=== PATIENT | female | born 1970 | race Caucasian/White ===

== ENCOUNTER 2016-05-01 13:05 | Emergency (ER) | payer OTHER, MEDICAID ==
[2016-05-01 13:11] VITALS: RESP 16; TEMP 97.7
--- NOTE | 2016-05-01 16:02 | EDPHY ---
HPI/HX/ROS/PE/MDM Narrative: CHIEF COMPLAINT: Chest pain HPI: The patient is an anticoagulated 46 y/o female, with a history of PEs and DVTs, complaining of left-sided chest pain since waking this morning. She reports mild shortness of breath for the few days that she first noticed after listening to a recording of herself. This morning she woke with left upper chest pain that has been constant in nature and slightly worse with inspiration. She denies recent illness, trauma, fever, leg pain or swelling, or cough. She says she is complaint with her Eliquis. REVIEW OF SYSTEMS: Aside from elements discussed in the HPI, a comprehensive 10-point review of systems was reviewed and is negative. PMH: Bipolar disorder, PEs and DVTs on Eliquis SOCIAL HISTORY: Friend at beside. Records astrology podcast PHYSICAL EXAM: General:Patient is alert, in no acute distress. ENT:Eyes are normal to inspection. ENT inspection normal. Neck: Normal inspection. Full range of motion. Respiratory:No respiratory distress. Breath sounds normal bilaterally. Cardiovascular: Regular rate and rhythm. Strong peripheral pulses. Normal cap refill. Abdomen:The abdomen is nontender to palpation. There are no peritoneal signs. There are normal bowel sounds. Back: Normal to inspection. No tenderness to palpation. Skin: Normal color. No rash. Warm and dry. Extremities: Normal appearance. Full range of motion. Neuro: Oriented x3. Normal motor function. Normal sensory function. ED Course: IV established. Labs drawn including CBC, CHEM, troponin, PTPTT. Plan for EKG, CTA angio. The 12 lead EKG was interpreted by myself. See hard copy and/or "tracemaster" electronic copy for interpretation. Study: CTA of the chest Indication: Chest pain, hx PE and DVT Results: CTA scan of the chest was obtained. The results of the study are 1. No evidence of pulmonary embolic disease. 2. See above report for additional findings. The study was read by the radiologist, Dr. Lentz. I viewed the images myself on the PACS system. 1813: Reassessed patient and discussed imaging results. Labs are unremarkable. She will be discharged home with referral to PCP and return precautions. She agrees with plan. MDM: This patient presents with left-sided pleuritic chest pain. Given her history of multiple PEs, we performed a CT angio of the chest to rule out this possibility. Thankfully this is negative. The patient is on anticoagulation. There is no evidence of acute coronary syndrome given negative EKG and troponin after prolonged constant symptoms. The etiology of her symptoms is unclear. I see no evidence of pneumonia, pneumothorax, PE, CHF or bronchitis. The patient is comfortable and her vital signs are normal. She is appropriate for outpatient workup. - Data Points Laboratory Results: Laboratory Results 05/01/16 16:15 05/01/16 16:15 05/01/16 05/01/16 05/01/16 16:18 16:15 16:15 WBC RBC Hgb POC Hgb 14.6 gm/dL gm/dL (12.3-15.9) Hct POC Hct 43 % % (35.5-47.5) MCV MCH MCHC RDW Plt Count MPV Neut % (Auto) Lymph % (Auto) Hand % (Auto) Eos % (Auto) Baso % (Auto) Nucleat RBC Rel Count Absolute Neuts (auto) Absolute Lymphs (auto) Absolute Monos (auto) Absolute Eos (auto) Absolute Basos (auto) Absolute Nucleated RBC Immature Gran % Immature Gran # PT 13.3 SEC SEC (12.0-15.0) INR 1.02 (0.83-1.16) APTT 25.1 SEC SEC (23.0-38.0) POC Sodium 141 mEq/L mEq/L (134-144) Sodium 138 mEq/L mEq/L (134-144) POC Potassium 3.5 mEq/L mEq/L (3.3-5.0) Potassium 3.8 mEq/L mEq/L (3.5-5.2) POC Chloride 100 mEq/L mEq/L (96-108) Chloride 102 mEq/L mEq/L (97-110) Carbon Dioxide 25 mEq/l mEq/l (22-31) Anion Gap 11 mEq/L mEq/L (8-16) POC BUN 9 mg/dL mg/dL (7-23) BUN 10 mg/dL mg/dL (7-23) Creatinine 0.6 mg/dL mg/dL (0.6-1.0) POC Creatinine 0.6 mg/dL mg/dL (0.6-1.2) Estimated GFR > 60 Glucose 96 mg/dL mg/dL (70-100) POC Glucose 101 mg/dL H mg/dL (70-100) Calcium 9.2 mg/dL mg/dL (8.5-10.4) Troponin I < 0.012 ng/mL ng/mL (0-0.034) 05/01/16 16:15 WBC 5.27 10^3/uL 10^3/uL (3.80-9.50) RBC 4.55 10^6/uL 10^6/uL (4.18-5.33) Hgb 14.2 g/dL g/dL (12.6-16.3) POC Hgb Hct 41.4 % % (38.0-47.0) POC Hct MCV 91.0 fL fL (81.5-99.8) MCH 31.2 pg pg (27.9-34.1) MCHC 34.3 g/dL g/dL (32.4-36.7) RDW 12.1 % % (11.5-15.2) Plt Count 189 10^3/uL 10^3/uL (150-400) MPV 9.3 fL fL (8.7-11.7) Neut % (Auto) 58.5 % % (39.3-74.2) Lymph % (Auto) 30.6 % % (15.0-45.0) Hand % (Auto) 9.9 % % (4.5-13.0) Eos % (Auto) 0.0 % L % (0.6-7.6) Baso % (Auto) 0.8 % % (0.3-1.7) Nucleat RBC Rel Count 0.0 % % (0.0-0.2) Absolute Neuts (auto) 3.09 10^3/uL 10^3/uL (1.70-6.50) Absolute Lymphs (auto) 1.61 10^3/uL 10^3/uL (1.00-3.00) Absolute Monos (auto) 0.52 10^3/uL 10^3/uL (0.30-0.80) Absolute Eos (auto) 0.00 10^3/uL L 10^3/uL (0.03-0.40) Absolute Basos (auto) 0.04 10^3/uL 10^3/uL (0.02-0.10) Absolute Nucleated RBC 0.00 10^3/uL 10^3/uL (0-0.01) Immature Gran % 0.2 % % (0.0-1.1) Immature Gran # 0.01 10^3/uL 10^3/uL (0.00-0.10) PT INR APTT POC Sodium Sodium POC Potassium Potassium POC Chloride Chloride Carbon Dioxide Anion Gap POC BUN BUN Creatinine POC Creatinine Estimated GFR Glucose POC Glucose Calcium Troponin I Point of Care Test Results: 05/01/16 16:18 POC Sodium 141 POC Potassium 3.5 POC Chloride 100 POC BUN 9 POC Creatinine 0.6 POC Glucose 101 H General Time Seen by Provider: 05/01/16 15:42 Initial Vital Signs: Initial Vital Signs Temperature (C) 36.5 C 05/01/16 13:06 Heart Rate 85 05/01/16 13:06 Respiratory Rate 16 05/01/16 13:06 Blood Pressure 105/81 H 05/01/16 13:06 O2 Sat (%) 96 05/01/16 13:06 O2 Delivery Mode Room Air Allergies/Adverse Reactions: lamotrigine [From Lamictal] Allergy (Mild, Verified 05/01/16 13:11) Rash Home Medications: Medication Instructions Recorded QUETIAPINE FUMARATE [SEROQUEL] 400 mg PO HS 05/28/10 ARIPIPRAZOLE [Abilify 30mg] 30 mg PO DAILY 08/04/10 Atorvastatin Calcium [Lipitor 20 20 mg PO DAILY 11/26/11 mg (*)] Levothyroxine [Synthroid 75 mcg 75 mcg PO DAILY06 11/27/11 (*)] carBAMazepine ER [Tegretol Xr] 800 mg PO HS 11/27/11 Apixaban [Eliquis] 2.5 mg PO 05/01/16 Gabapentin [Neurontin 300 MG (*)] 300 mg PO HS 05/01/16 Departure - Departure Disposition: Home, Routine, Self-Care Clinical Impression: Chest pain Condition: Good Instructions: Chest Pain (ED) Additional Instructions: 1. Continue your medications as prescribed. 2. Follow up with your primary care provider on Tuesday for symptoms not improved. 3. Return to the ED for worsening of condition. Referrals: Keena Corrales [Primary Care Provider] - As per Instructions Report Scribed for: Antonio Redding Report Scribed by: Tsering Ellis Date of Report: 05/01/16 Time of Report: 16:05 Physician Review and Approval Statement: Portions of this note were transcribed by an ED scribe. I personally performed the history, physical exam, and medical decision making; and confirm the accuracy of the information in the transcribed note.
[2016-05-01 16:30] LABS: % IMMATURE GRANULYOCYTES 0.2 % (0.0-1.1); ABSOLUTE IMMATURE GRANULOCYTES 0.01 10^3/uL (0.00-0.10); ADD DIFF? NO; ADD MORPH? NO; ADD SCAN? NO; ATYPICAL LYMPHOCYTE FLAG 10 (0-99); FRAGMENT RBC FLAG 0 (0-99); HEMATOCRIT 41.4 % (38.0-47.0); HEMOGLOBIN 14.2 g/dL (12.6-16.3); LEFT SHIFT FLG 0 (0-99); LIPEMIA HEMOLYSIS FLAG 90 (0-99); MEAN CELL HEMOGLOBIN 31.2 pg (27.9-34.1); MEAN CELL HEMOGLOBIN CONCENTR. 34.3 g/dL (32.4-36.7); MEAN PLATELET VOLUME 9.3 fL (8.7-11.7); PLATELET CLUMPS FLAG 0 (0-99); PLATELET COUNT 189 10^3/uL (150-400); RED BLOOD CELL COUNT 4.55 10^6/uL (4.18-5.33); RED CELL DISTRIBUTION WIDTH 12.1 % (11.5-15.2)
[2016-05-01 16:40] LABS: INR 1.02 (0.83-1.16); PROTIME(PATIENT) 13.3 SEC (12.0-15.0)
[2016-05-01 16:41] LABS: APTT 25.1 SEC (23.0-38.0)
[2016-05-01] MEDS ORDERED: IOPAMIDOL (ISOVUE 370) 100 ML BTL IV ONE (16:58)
--- NOTE | 2016-05-01 17:04 | CPEKG ---
Heart Rate: 67 RR Interval: 896 P-R Interval: 176 QRSD Interval: 76 QT Interval: 396 QTC Interval: 418 P [place]: -30 QRS [place]: 76 T Wave [place]: 63 EKG Severity - NORMAL ECG - EKG Impression: SINUS RHYTHM Electronically Signed By: Deion Velasquez 03-May-2016 09:40:18
[2016-05-01 17:08] LABS: ANION GAP 11 mEq/L (8-16); CALCIUM 9.2 mg/dL (8.5-10.4); CARBON DIOXIDE 25 mEq/l (22-31); CHLORIDE 102 mEq/L (97-110); CREATININE 0.6 mg/dL (0.6-1.0); GLOMERULAR FILTRATION RATE > 60; GLUCOSE 96 mg/dL (70-100); POTASSIUM 3.8 mEq/L (3.5-5.2); SODIUM 138 mEq/L (134-144)
[2016-05-01 17:18] LABS: TROPONIN I < 0.012 ng/mL (0-0.034)
[2016-05-01 18:47] VITALS: BP 121/69; PULSE 80; O2SAT 95
== END 2016-05-01 18:47 | disposition home or self-care (01) ==
DX: R07.9 Chest pain, unspecified (principal); Z79.01 Long term (current) use of anticoagulants
CPT/HCPCS: 71275; 93005; 99285; Q9967; 82947-QW

== ENCOUNTER 2016-09-17 19:18 | Emergency (ER) | payer OTHER, MEDICAID ==
[2016-09-17 19:27] VITALS: BP 109/83; PULSE 88; RESP 18; TEMP 98.6; O2SAT 94
--- NOTE | 2016-09-17 19:51 | EDPHY ---
H & P Stated Complaint: heel pain Time Seen by Provider: 09/17/16 19:51 - Personal History LMP (Females 10-55): Post Menopausal Current Tetanus/Diphtheria Vaccine: Unsure - Medical/Surgical History Hx Asthma: No Hx Chronic Respiratory Disease: No Hx Diabetes: No Hx Cardiac Disease: No Hx Renal Disease: No Hx Cirrhosis: No Hx Alcoholism: No Hx HIV/AIDS: No Hx Splenectomy or Spleen Trauma: No Other PMH: PE x2; bi polar; PTSD - Social History Smoking Status: Former smoker Constitutional: Initial Vital Signs Temperature (C) 37.0 C 09/17/16 19:25 Heart Rate 88 09/17/16 19:25 Respiratory Rate 18 09/17/16 19:25 Blood Pressure 109/83 H 09/17/16 19:25 O2 Sat (%) 94 09/17/16 19:25 O2 Delivery Mode Room Air Allergies/Adverse Reactions: lamotrigine [From Lamictal] Allergy (Mild, Verified 05/01/16 13:11) Rash Home Medications: Medication Instructions Recorded QUETIAPINE FUMARATE [SEROQUEL] 400 mg PO HS 05/28/10 ARIPIPRAZOLE [Abilify 30mg] 30 mg PO DAILY 08/04/10 Atorvastatin Calcium [Lipitor 20 20 mg PO DAILY 11/26/11 mg (*)] Levothyroxine [Synthroid 75 mcg 75 mcg PO DAILY06 11/27/11 (*)] carBAMazepine ER [Tegretol Xr] 800 mg PO HS 11/27/11 Apixaban [Eliquis] 2.5 mg PO 05/01/16 Gabapentin [Neurontin 300 MG (*)] 300 mg PO HS 05/01/16 Medical Decision Making - Diagnostics Imaging Results: Imaging Impressions Calcaneus X-Ray 09/17/16 19:57 Impression: Tiny plantar spur. No evidence of stress fracture or bone lesion. ED Course/Re-evaluation: CHIEF COMPLAINT: Heel pain HISTORY OF PRESENT ILLNESS: The patient is a 46 y/o female arriving with her family member complaining of left heel and posterior knee pain onset this morning upon waking. She slept on the cough last night and thinks maybe she struck her heel on the wooden edge of the couch while sleeping. Her knee pain resolved during the day, but her heel pain worsened. This pain is aggravated by even small movements of her toes. She cannot identify other obvious precipitating cause. She denies any other symptoms. REVIEW OF SYSTEMS: A 10 point review of systems was performed and is negative with the exception of the elements mentioned in the history of present illness. PHYSICAL EXAM: HR, BP, O2 Sat, RR. Temp noted General Appearance: Alert, well hydrated, appropriate, and non-toxic appearing. Head: Atraumatic without scalp tenderness or obvious injury Eyes: Pupils equal, round, reactive to light and accommodation, EOMI, no trauma , no injection. Nose: Atraumatic, no rhinorrhea, clear. Throat: Mucus membranes moist. Neck: Supple Respiratory: No distress. Cardiovascular: Left dorsalis pedis pulse intact. Good capillary refill all extremities. Musculoskeletal: Tender on medial and lateral left calcaneus. Normal active ROM of all extremities, atraumatic. Neurological: Alert, appropriate, and interactive. Nonfocal neuro exam. Skin: No rashes, good turgor, no nodules on palpation. Past medical history: Denies Past surgical history: Denies Family history: Noncontributory Social history: Family member at bedside. DIAGNOSTICS/PROCEDURES/CRITICAL CARE TIME: Left heel x-ray: heel spur DIFFERENTIAL DIAGNOSIS: The differential diagnosis for the patient's injury included but was not limited to fracture, ligamentous injury, contusion, muscular strain, and meniscus injury. MEDICAL DECISION MAKING: Patient presents with isolated tenderness to medial and lateral left calcaneus. No visible trauma. X-ray shows heel spur. Patient will be discharged with pain medication and referral to podiatry for follow up. - Data Points Medications Given: Discontinued Medications Hydrocodone Bitart/Acetaminophen ([place] 5/325) 1 tab PO EDNOW ONE Stop: 09/17/16 20:31 Last Admin: 09/17/16 20:36 Dose: 1 tab Departure - Departure Disposition: Home, Routine, Self-Care Clinical Impression: Heel pain Qualifiers: Laterality: left Qualified Code(s): M79.672 - Pain in left foot Condition: Good Instructions: Heel Spur (ED) Additional Instructions: Follow up with Dr. Wells, cma, in the next week. Use Tylenol or ibuprofen as directed on packaging as needed for pain for the next few days. Referrals: Keena Corrales [Primary Care Provider] - As per Instructions Ava Wells [Doctor of Podiatric Medicine] - As per Instructions Report Scribed for: Zana Ramires Report Scribed by: Tsering Ellis Date of Report: 09/17/16 Time of Report: 19:59
[2016-09-17] MEDS ORDERED: HYDROCODONE/APAP 5/325 TAB PO ONE (20:30)
[2016-09-17] MEDS ORDERED: HYDROCOD/APAP 5/325 PREPACK#6 BTL TAKEHOME ONE (21:35)
== END 2016-09-17 21:47 | disposition home or self-care (01) ==
DX: M79.672 Pain in left foot (principal); Z87.891 Personal history of nicotine dependence

== ENCOUNTER 2017-08-09 22:13 | Emergency (ER) | payer OTHER, MEDICAID ==
[2017-08-09 22:19] VITALS: BP 131/83
--- NOTE | 2017-08-09 23:20 | EDPHY ---
General - History Smoking Status: Former smoker Time Seen by Provider: 08/09/17 23:12 Narrative: CHIEF COMPLAINT: Right foot pain and redness HISTORY OF PRESENT ILLNESS: Patient complains of pain, redness and swelling to the top of the right foot. This occurred 10-14 days ago when she accidentally burned herself. She says she was making tea when she accidentally spilled "a teaspoon or so" of hot water on the dorsum of the right foot. She reports that she was doing well with the 1st 2 days. She had rinse the foot off with cold water and applied antibiotic ointment only 1 time. Over the past 3 days she notes some redness, swelling and warmth to the foot centralized being around the area of burn. This was after the blister formation had pop. She has pain with ambulation is minimal. She has some pain that radiates up into the ankle. No numbness. No fever. She has no previous examination for this. Her tetanus is questionable status. She is primarily concerned for the possibility of infection and DVT as he has had 3 previous PEs. No other associated complaints or modifying factors. REVIEW OF SYSTEMS: Ten systems reviewed and are negative unless otherwise noted in the HPI PAST MEDICAL HISTORY: PEs, bipolar disorder, PTSD. Primary care physicians Dr. Brink has PAST SURGICAL HISTORY: Denies any recent surgical history SOCIAL HISTORY: Nonsmoker. Lives independently with her partner FAMILY HISTORY: Noncontributory EXAMINATION General Appearance: Alert, no distress Cardiovascular: Symmetric DP and PT pulses 2+. Brisk cap refill in the right foot. Neurological: A&O, sensory symmetric, strength of the great toe symmetric. Skin: Warm and dry. There is an area of healing burn on the dorsum of the right foot centrally. This is not circumferential. There is some surrounding erythema and warmth. There is no palpable fluctuance, crepitus or necrosis. Minimal warmth. There is no abnormality of the palms of the hands or soles of the feet. Extremities: All compartments are soft in the right lower extremity. Minimal tenderness to the area of likely cellulitis to the dorsum of the right foot. Range of motion is fully intact. There is no pain with passive dorsiflexion of the foot. No pain or palpable cords in the right calf. Do not appreciate any evidence of DVT. Psychiatric: Mood and affect normal DIFFERENTIAL DIAGNOSES: Including but not limited to cellulitis, abscess, osteomyelitis, DVT, secondary infection, partial-thickness burn MDM: 11:20 p.m. Suspected cellulitis to the dorsum of the right foot secondary to burn that happened nearly 2 weeks ago. I do not appreciate any evidence of osteomyelitis , and this is confined to the dorsum of the right foot with no involvement of the toes or leg. I will rule out DVT and I will x-ray the foot. Laboratory studies will be obtained. Commence antibiotic therapy here. She does not meet any criteria for SIRS, nor do I think this is likely to be osteomyelitis. 11:45 p.m. Notified by radiologist Dr. Acuna ultrasound right lower extremity is negative for DVT. 12:10 a.m. X-ray of the foot is negative for acute findings as read by me, without the aid of the radiologist. Laboratory studies are within normal limits with no leukocytosis. I do feel this is likely a simple cellulitis. I do not think that this is likely to be abscess, osteomyelitis. There is no desquamation. There is no involvement of the palms of the hands or soles of the feet. There is no evidence of compartment syndrome. I will treat her for cellulitis with Bactrim and Keflex. I recommend bacitracin to the area of burn once daily. We discussed follow up with primary care physician and I have provided Dr. Barr should she need outpatient wound care. I would like her to be re-evaluated in 24-48 hours. I would like her to return here for any worsening symptoms, increasing redness, warmth or pain. She is comfortable this plan and discharged home stable condition, fully ambulatory without assistance SUPERVISION: Patient was independently examined, but I discussed the case with my secondary supervising physician Dr. Walters ED Precautions: Worsening pain. Erythema, edema, cyanosis, pallor, paresthesia or anesthesia. (Rudolph Fonseca) PHYSICIAN DOCUMENTATION: The patient was evaluated and managed by the Physician Electroplater Helper. My co- signature indicates that I have reviewed this chart and I agree with the findings and plan of care as documented. I am the secondary supervising physician. (Sarah Walters) - Diagnostics Imaging Results: Imaging Impressions Extremity Venous Study 08/09/17 23:21 Impression: No evidence of deep vein thrombosis in the right lower extremity. Results called and discussed with Rudolph Fonseca, at 08/09/2017 23:53 - Objective Vital Signs: Initial Vital Signs Temperature (C) 36.5 C 08/09/17 22:15 Heart Rate 84 08/09/17 22:15 Respiratory Rate 16 08/09/17 22:15 Blood Pressure 131/83 H 08/09/17 22:15 O2 Sat (%) 95 08/09/17 22:15 O2 Delivery Mode Room Air Allergies/Adverse Reactions: lamotrigine [From Lamictal] Allergy (Mild, Verified 08/09/17 22:17) Rash Home Medications: Medication Instructions Recorded QUETIAPINE FUMARATE [SEROQUEL] 400 mg PO HS 05/28/10 ARIPIPRAZOLE [Abilify 30mg] 30 mg PO DAILY 08/04/10 Atorvastatin Calcium [Lipitor 20 20 mg PO DAILY 11/26/11 mg (*)] carBAMazepine ER [Tegretol Xr] 800 mg PO HS 11/27/11 Apixaban [Eliquis] 2.5 mg PO 05/01/16 Gabapentin [Neurontin 300 MG (*)] 300 mg PO HS 05/01/16 Cephalexin [Keflex (*)] 500 mg PO QID #36 cap 08/10/17 Sulfamethox/Tmp 800/160 mg 1 tab PO BID 10 Days tab 08/10/17 [Bactrim Ds] Laboratory Results: Laboratory Results 08/09/17 23:30 08/09/17 23:30 08/09/17 08/09/17 23:30 23:30 WBC 7.42 10^3/uL 10^3/uL (3.80-9.50) RBC 4.74 10^6/uL 10^6/uL (4.18-5.33) Hgb 14.6 g/dL g/dL (12.6-16.3) Hct 43.3 % % (38.0-47.0) MCV 91.4 fL fL (81.5-99.8) MCH 30.8 pg pg (27.9-34.1) MCHC 33.7 g/dL g/dL (32.4-36.7) RDW 12.4 % % (11.5-15.2) Plt Count 218 10^3/uL 10^3/uL (150-400) MPV 9.0 fL fL (8.7-11.7) Neut % (Auto) 44.9 % % (39.3-74.2) Lymph % (Auto) 42.3 % % (15.0-45.0) [place] % (Auto) 11.3 % % (4.5-13.0) Eos % (Auto) 0.3 % L % (0.6-7.6) Baso % (Auto) 0.8 % % (0.3-1.7) Nucleat RBC Rel Count 0.0 % % (0.0-0.2) Absolute Neuts (auto) 3.33 10^3/uL 10^3/uL (1.70-6.50) Absolute Lymphs (auto) 3.14 10^3/uL H 10^3/uL (1.00-3.00) Absolute Monos (auto) 0.84 10^3/uL H 10^3/uL (0.30-0.80) Absolute Eos (auto) 0.02 10^3/uL L 10^3/uL (0.03-0.40) Absolute Basos (auto) 0.06 10^3/uL 10^3/uL (0.02-0.10) Absolute Nucleated RBC 0.00 10^3/uL 10^3/uL (0-0.01) Immature Gran % 0.4 % % (0.0-1.1) Immature Gran # 0.03 10^3/uL 10^3/uL (0.00-0.10) ESR 11 MM/HR MM/HR (0-20) Sodium 139 mEq/L mEq/L (135-145) Potassium 4.0 mEq/L mEq/L (3.3-5.0) Chloride 102 mEq/L mEq/L (97-110) Carbon Dioxide 26 mEq/l mEq/l (22-31) Anion Gap 11 mEq/L mEq/L (8-16) BUN 9 mg/dL mg/dL (7-23) Creatinine 0.6 mg/dL mg/dL (0.6-1.0) Estimated GFR > 60 Glucose 70 mg/dL mg/dL (70-100) Calcium 9.0 mg/dL mg/dL (8.5-10.4) C-Reactive Protein 6.9 mg/L mg/L (<10.0) Medications Given: Discontinued Medications Cephalexin (Keflex 500 Mg Prepack#4) 1 btl TAKEHOME EDNOW ONE PRN Reason: Protocol Stop: 08/10/17 00:06 Last Admin: 08/10/17 01:09 Dose: 1 btl Diphtheria/Tetanus/Acell Pertussis (Boostrix) 0.5 ml IM .ONCE ONE Stop: 08/10/17 00:19 Last Admin: 08/10/17 01:11 Dose: 0.5 ml Trimethoprim/Sulfamethoxazole (Bactrim Ds Prepack#2) 1 btl TAKEHOME EDNOW ONE Stop: 08/10/17 00:06 Last Admin: 08/10/17 01:11 Dose: 1 btl Departure - Departure Disposition: Home, Routine, Self-Care Clinical Impression: Cellulitis of foot without toes Partial thickness burn of right foot Qualifiers: Encounter type: initial encounter Qualified Code(s): T25.221A - Burn of second degree of right foot, initial encounter Condition: Good Instructions: Cephalexin (By mouth), Sulfamethoxazole/Trimethoprim (By mouth), Cellulitis (ED), Second Degree Burn (ED) Additional Instructions: 1. Ice and elevate the extremity often 2. Anti-inflammatories as needed for swelling and discomfort 3. Antibiotics as prescribed to completion 4. Follow up with primary care physician as instructed 5. Contact Dr. Barr for outpatient wound care if needed Referrals: Keena Corrales [Primary Care Provider] - As per Instructions Lindsey Barr MD [Medical Doctor] - As per Instructions Prescriptions: Cephalexin [Keflex (*)] 500 mg PO QID #36 cap Sulfamethox/Tmp 800/160 mg [Bactrim Ds] 1 tab PO BID 10 Days tab
[2017-08-09 23:40] LABS: PLATELET COUNT 218 10^3/uL (150-400)
[2017-08-10] MEDS ORDERED: CEPHALEXIN 500MG PREPACK#4 BTL TAKEHOME ONE (00:05)
[2017-08-10] MEDS ORDERED: SULFAMET/TMP DS PREPACK#2 BTL TAKEHOME ONE (00:05)
[2017-08-10] MEDS ORDERED: TDAP ADULT 0.5 ML INJ (BOOSTRIX) IM ONE (00:18)
== END 2017-08-10 01:16 | disposition home or self-care (01) ==
DX: T25.221A Burn of second degree of right foot, initial encounter (principal); L03.115 Cellulitis of right lower limb; Z23 Encounter for immunization; Z87.891 Personal history of nicotine dependence; X10.0XXA Contact with hot drinks, initial encounter; Y99.8 Other external cause status